=== PATIENT | female | born 1950 | race Caucasian/White ===

== ENCOUNTER → 2017-09-06 | Outpatient (CLI) | payer MEDICARE ==
--- NOTE | 2017-09-06 15:09 | REP ---
PELVIC ULTRASOUND: Real-time sonographic evaluation of the pelvis performed utilizing transabdominal and endovaginal technique. The bladder measures 9.0 x 8.0 x 10.4 cm. The uterus measures 5.4 x 3.0 x 3.8 cm. Echotexture is diffusely heterogenous within the myometrium. No distinct fibroid is seen. Endometrial thickness is 2 mm. There is no endometrial fluid collection. The uterus is retroverted. The ovaries appear normal in size and echotexture, right ovary measuring 2.5 x 1.2 x 1.1 cm and the left ovary 2.3 x 0.9 x 1.1 cm. There is no adnexal mass or free fluid. Blood flow is seen in both ovaries with duplex Doppler evaluation, with on torsion. IMPRESSION: Heterogeneous echotexture of the uterus without discrete fibroids. No mass or free fluid. No torsion. Signed by Raffaele Leon MD 09/06/2017 03:11 P
--- NOTE | 2017-09-06 15:22 | REPMRS ---
Patient History The patient states she had a clinical breast exam in 2016. Patient is postmenopausal and has history of other cancer. Family history of breast cancer in mother at age 70. Digital Mammo Screening Bilat: September 06, 2017 - Exam #: [id number] Bilateral CC and MLO view(s) were taken. Technologist: Bharti Montes De Oca, Technologist Prior study comparison: August 20, 2016, bilateral digital mammo screening bilat performed at [facility]. August 06, 2015, bilateral digital mammo screening bilat performed at [facility]. FINDINGS: There are scattered fibroglandular densities. There has been no change in the appearance of the mammogram from the prior studies. There is a mild amount of residual fibroglandular tissue which is fairly symmetric. There is no interval development of dominant mass, architectural distortion, or clustered microcalcification suggestive of malignancy. ASSESSMENT: BI-RADS/ACR category 1 mammogram. Negative. Recommendation Routine screening mammogram in 1 year (for women over age 40). This mammogram was interpreted with the aid of an FDA-approved computer-aided dectection system. Electronically Signed By: Raffaele Leon MD 09/06/17 1992
== END ==
LOC: M RAD 13:47
PROVIDERS: ATTEND Obstetrics & Gynecology Gynecology
DX: Z12.31 Encounter for screening mammogram for malignant neoplasm of breast (principal); Z80.3 Family history of malignant neoplasm of breast; Z78.0 Asymptomatic menopausal state; R19.30 Abdominal rigidity, unspecified site
CPT/HCPCS: 76830; 76856; G0202